=== PATIENT | female | born 1980 | race Caucasian/White ===

== ENCOUNTER → 2021-10-10 12:48 | Outpatient (BNVA) | payer OTHER, SELFPAY | PROVIDERS: Visit Provider Nurse Practitioner Family | DX: Z20.822 Contact with and (suspected) exposure to COVID-19 (principal) | CPT/HCPCS: 87635 ==

== ENCOUNTER → 2021-11-01 14:07 | Outpatient (BNVA) | payer MEDICAID, SELFPAY | PROVIDERS: Visit Provider Family Medicine | DX: N39.0 Urinary tract infection, site not specified (principal) | CPT/HCPCS: 81000 ==

== ENCOUNTER → 2021-11-15 14:55 | Outpatient (BNVA) | payer OTHER, MEDICAID, SELFPAY | PROVIDERS: Visit Provider Family Medicine | DX: E11.9 Type 2 diabetes mellitus without complications (principal); E89.41 Symptomatic postprocedural ovarian failure; I10 Essential (primary) hypertension; Z76.89 Persons encountering health services in other specified circumstances; R68.82 Decreased libido; F32.9 Major depressive disorder, single episode, unspecified; F17.218 Nicotine dependence, cigarettes, with other nicotine-induced disorders | CPT/HCPCS: 80053; 80061; 83036; 84443; 85025 ==

== ENCOUNTER 2022-03-20 17:20 | Emergency (ER) | payer OTHER, MEDICAID, SELFPAY ==
[2022-03-20 18:00] VITALS: BP 143/81; PULSE 109; RESP 18; TEMP 36.8; O2SAT 94; BMI 34.9
[2022-03-20 18:44] LABS: Basophils # 0.1 10^3/uL (0.0-0.1); Basophils % 0.5 %; Eosinophils # 0.4 10^3/uL (0.0-0.8); Eosinophils % 2.1 %; Hematocrit 44.1 % (37.0-47.0); Hemoglobin 14.4 g/dL (11.5-15.3); Lymphocytes # 4.9 10^3/uL (0.8-4.8); Lymphocytes % 28.6 %; Mean Corpuscular HGB Conc 32.7 g/dL (30.0-36.0); Mean Corpuscular Hemoglobin 29.6 pg (28.0-34.0); Mean Corpuscular Volume 90.6 fl (81-99); Mean Platelet Volume 9.1 fL (7.4-10.4); Monocytes # 1.1 10^3/uL (0.2-0.9); Monocytes % 6.1 %; Neutrophils # 10.77 10^3/uL (1.8-7.7); Neutrophils % 62.4 %; Nucleated Red Blood Cells % 0 %; Platelet Count 474 10^3/cmm (130-400); Red Blood Count 4.87 10^6/uL (4.1-5.3); Red Cell Distribution Width 12.9 % (12.1-15.1); White Blood Count 17.2 10^3/uL (4.0-10.0)
[2022-03-20 19:02] LABS: Slide Review Slide Review Perform
[2022-03-20 19:53] LABS: Alanine Aminotransferase 14 U/L (0-33); Albumin Level 4.6 g/dL (3.5-5.2); Alkaline Phosphatase 70 IU/L (35-105); Anion Gap 19.3 (5-19); Aspartate Amino Transferase 11 U/L (0-32); Blood Urea Nitrogen 16 mg/dL (6-20); Calcium 9.7 mg/dL (8.5-10.5); Carbon Dioxide 25 mmol/L (22-29); Chloride 98 mmol/L (98-107); Creatinine Clr Calc Pharmacy 137.9923; Globulin 2.5 g/dL (1.3-4.6); Glomerular Filtration Rate 109.1 mL/min (90-130); Glucose 139 mg/dL (65-115); Lipase 19 U/L (13-60); Osmolality Calculated 289 mOsm/kg (285-295); Potassium 4.3 mmol/L (3.5-5.1); Sodium 138 mmol/L (136-145); Total Bilirubin 0.2 mg/dL (0.15-1.2); Total Protein 7.1 g/dL (6.6-8.7)
[2022-03-20 20:09] LABS: HCG, Serum Qual Negative (Negative)
--- NOTE | 2022-03-20 20:46 | CTR_ITS ---
PROCEDURE INFORMATION: Exam: CT Abdomen And Pelvis Without Contrast Exam date and time: 03/20/2022 9:01 PM Age: 41 years old Clinical indication: Pain; Other: RT flank; Additional info: Hematuria w sudden onset RT flank pain TECHNIQUE: Imaging protocol: Computed tomography of the abdomen and pelvis without contrast. Radiation optimization: All CT scans at this facility use at least one of these dose optimization techniques: automated exposure control; mA and/or kV adjustment per patient size (includes targeted exams where dose is matched to clinical indication); or iterative reconstruction. COMPARISON: No relevant prior studies available. RADIATION DOSE METRICS: Total DLP (mGy-cm): 1230.03 FINDINGS: Limitations: The absence of intravenous contrast lessens the sensitivity of this study for solid organ abnormalities. Lungs: There is a 7 mm sized noncalcified nodule left lower lobe on image number 9 series 3. For patients at low risk (minimal or absent history of smoking and of other known risk factors), recommend CT Chest at 3-6 months, then consider CT Chest at 18-24 months. For patients at high risk (history of smoking or of other known risk factors), recommend CT Chest at 3-6 months, then CT Chest at 18-24 months. (Reference: Diogo) Liver: There is a diffuse decrease in hepatic parenchymal density, consistent with mild fatty infiltration. There is no focal abnormality within the liver. Gallbladder and bile ducts: The gallbladder is normal. Pancreas: The pancreas is normal. Spleen: The spleen is normal. Adrenal glands: The adrenal glands are normal. Kidneys and ureters: The left kidney is normal. There is mild right hydronephrosis. There is mild right hydroureter. There is some stranding around the right renal collecting system and right ureter which may indicate recent obstruction or inflammatory disease. No calcified renal or ureteral calculus is demonstrated. Findings could be due to recently passed stone, infection, or nonopaque obstruction such as nonopaque stone or blood clot. Stomach and bowel: There is no evidence of colitis/diverticulitis. There is no evidence of intestinal obstruction. Appendix: A normal appendix is identified. Intraperitoneal space: There is no evidence of free intraperitoneal fluid. Vasculature: The aorta demonstrates mild atherosclerotic calcification. There is no evidence of an abdominal aortic aneurysm. Lymph nodes: There is no evidence of lymphadenopathy. Urinary bladder: There is question of some mild thickening the urinary bladder wall. The urinary bladder is not distended. Please correlate with clinical signs and symptoms for any evidence of urinary tract infection. Reproductive: There has been a hysterectomy. Bones/joints: Unremarkable. No acute fracture. Soft tissues: Unremarkable. CT/CT kidney stone [id number] IMPRESSION: 1. Mild right hydronephrosis and hydroureter with stranding around the right collecting system and ureter which could be due to recently passed stone or infection. Please correlate with clinical findings. 2. Question of mild urinary bladder wall thickening. REFERENCES: Diogo Ortega, et al. Guidelines for Management of Incidental Pulmonary Nodules Detected on CT Images: From the Fleischner Society 2017. Radiology. 2017;284(1):228-243.
--- NOTE | 2022-03-20 20:46 | ED_ITS ---
HPI - Female Genitourinary General: Chief complaint: Urogenital-Female Stated complaint: urinating blood Time Seen by Provider: 03/20/22 20:45 History of Present Illness: 41-year-old female comes in today for complaints of right flank pain. Pain radiates down into the abdomen. Patient reports some nausea due to pain. Patient has a history of renal calculi. Patient has a history of type 2 diabetes, major depression, and nicotine dependence. Patient appears nontoxic. Patient appears in moderate pain. Patient reported some hematuria starting this afternoon. Associated symptoms: Reports abdominal pain Review of Systems Const: Denies: fever(s) GI: Reports: abdominal pain : Reports: flank pain and hematuria PFSH ED PFSH: Social History Smoking and tobacco status: never smoked Alcohol intake: current Alcohol intake frequency: holidays/special occasions only Physical Exam Const: COMMON NORMALS: alert HENMT: COMMON NORMALS: normocephalic HEAD & SCALP: normocephalic Neck/C-Spine: COMMON NORMALS: full ROM Resp: COMMON NORMALS: normal respiratory effort Cardio: COMMON NORMALS: regular rate RATE: regular rate GI: AUSCULTATION: Yes normoactive bowel sounds PALPATION: Yes Tenderness to palpation present (GI) Details: RUQ : BLADDER/KIDNEY EXAM: Yes CVA tenderness on the right Back/Pelvis: GENERAL BACK: Yes CVA tenderness Neuro: SENSORIUM/ORIENTATION: Yes alert Skin: COMMON NORMALS: no rashes or lesions noted GENERAL SKIN EXAM: no rashes or lesions noted Course Vital Signs: Vital signs: Vital Signs Temperature 98.2 F 03/20/22 18:00 Pulse Rate 109 H 03/20/22 18:00 Respiratory Rate 18 03/20/22 18:00 Blood Pressure 143/81 03/20/22 18:00 Pulse Oximetry 94 03/20/22 18:00 MDM - Female Medical Decision Making 41-year-old female comes in today with complaints of right flank pain. On exam patient had some right CVA tenderness. And some right upper quadrant abdominal tenderness. Bowel sounds were present. Skin was warm and dry. Vital signs are normal. Differential diagnosis include pyelonephritis, renal calculi, cholecystitis. Laboratory values noted a white blood cell count 17,000, urinalysis had a large amount of red blood cells and white blood cells. Patient appeared nontoxic. CT of the abdomen pelvis noted some hydronephrosis without any signs of obstructing calculi. Believe the patient probably has some pyelonephritis. Patient was given 1 g of ceftriaxone and will be continued on Cipro 500 mg twice a day for 5 more days. Patient was encouraged to drink plenty of fluids. Patient was given hydrocodone for pain. Recommend follow-up with urology due to her history of kidney stones and the pyelonephritis. Patient was recommended to return to the ER for worsening symptoms or new concerns. Lab Data : 03/20/22 18:35 03/20/22 18:35 Radiology Impressions Abdomen/Pelvis CT 03/20/22 20:46 IMPRESSION: 1. Mild right hydronephrosis and hydroureter with stranding around the right collecting system and ureter which could be due to recently passed stone or infection. Please correlate with clinical findings. 2. Question of mild urinary bladder wall thickening. REFERENCES: Diogo Ortega, et al. Guidelines for Management of Incidental Pulmonary Nodules Detected on CT Images: From the Fleischner Society 2017. Radiology. 2017;284(1):228-243. Laboratory Results WBC 17.2 10^3/uL (4.0-10.0) H 03/20/22 18:35 RBC 4.87 10^6/uL (4.1-5.3) 03/20/22 18:35 Hgb 14.4 g/dL (11.5-15.3) 03/20/22 18:35 Hct 44.1 % (37.0-47.0) 03/20/22 18:35 MCV 90.6 fl (81-99) 03/20/22 18:35 MCH 29.6 pg (28.0-34.0) 03/20/22 18:35 MCHC 32.7 g/dL (30.0-36.0) 03/20/22 18:35 RDW 12.9 % (12.1-15.1) 03/20/22 18:35 Plt Count 474 10^3/cmm (130-400) H 03/20/22 18:35 MPV 9.1 fL (7.4-10.4) 03/20/22 18:35 Neut % (Auto) 62.4 % 03/20/22 18:35 Lymph % (Auto) 28.6 % 03/20/22 18:35 [place] % (Auto) 6.1 % 03/20/22 18:35 Eos % (Auto) 2.1 % 03/20/22 18:35 Baso % (Auto) 0.5 % 03/20/22 18:35 Neut # (Auto) 10.77 10^3/uL (1.8-7.7) H 03/20/22 18:35 Lymph # (Auto) 4.9 10^3/uL (0.8-4.8) H 03/20/22 18:35 [place] # (Auto) 1.1 10^3/uL (0.2-0.9) H 03/20/22 18:35 Eos # (Auto) 0.4 10^3/uL (0.0-0.8) 03/20/22 18:35 Baso # (Auto) 0.1 10^3/uL (0.0-0.1) 03/20/22 18:35 Nucleated RBC % (auto) 0 % 03/20/22 18:35 Nucleated RBCs # 0.0 /100WBC 03/20/22 18:35 Sodium 138 mmol/L (136-145) 03/20/22 18:35 Potassium 4.3 mmol/L (3.5-5.1) 03/20/22 18:35 Chloride 98 mmol/L (98-107) 03/20/22 18:35 Carbon Dioxide 25 mmol/L (22-29) 03/20/22 18:35 Anion Gap 19.3 (5-19) H 03/20/22 18:35 BUN 16 mg/dL (6-20) 03/20/22 18:35 Creatinine 0.6 mg/dL (0.5-0.9) 03/20/22 18:35 GFR Calculation 109.1 mL/min (90-130) 03/20/22 18:35 Glucose 139 mg/dL (65-115) H 03/20/22 18:35 Calculated Osmolality 289 mOsm/kg (285-295) 03/20/22 18:35 Calcium 9.7 mg/dL (8.5-10.5) 03/20/22 18:35 Total Bilirubin 0.2 mg/dL (0.15-1.2) 03/20/22 18:35 AST 11 U/L (0-32) 03/20/22 18:35 ALT 14 U/L (0-33) 03/20/22 18:35 Alkaline Phosphatase 70 IU/L (35-105) 03/20/22 18:35 Total Protein 7.1 g/dL (6.6-8.7) 03/20/22 18:35 Albumin 4.6 g/dL (3.5-5.2) 03/20/22 18: Globulin 2.5 g/dL (1.3-4.6) 03/20/22 18:35 Lipase 19 U/L (13-60) 03/20/22 18:35 HCG, Qual Negative (Negative) 03/20/22 18:35 Urine Color Red (Yellow) 03/20/22 18:30 Urine Appearance Cloudy (CLEAR) 03/20/22 18:30 Urine pH 6 (5-7) 03/20/22 18:30 Ur Specific [place] 1.010 (1.005-1.030) 03/20/22 18:30 Urine Protein 2+ (Negative) H 03/20/22 18:30 Urine Glucose (UA) Norm (Normal) 03/20/22 18:30 Urine Ketones Negative (Negative) 03/20/22 18:30 Urine Blood 3+ (Negative) H 03/20/22 18:30 Urine Nitrate Negative (Negative) 03/20/22 18:30 Urine Bilirubin Neg (Negative) 03/20/22 18:30 Urine Urobilinogen Norm mg/dL (Negative) 03/20/22 18:30 Ur Leukocyte Esterase 2+ (Negative) H 03/20/22 18:30 Urine RBC Too numerous to cnt /hpf (0-2) H 03/20/22 18:30 Urine WBC >100 /hpf (0-5) H 03/20/22 18:30 Ur Squamous Epith Cells 0-4 /hpf (0-5) H 03/20/22 18:30 Amorphous Sediment Not Reportable 03/20/22 18:30 Urine Bacteria 4+ /hpf (NONE) H 03/20/22 18:30 Discharge Plan Discharge Patient Disposition: Home Clinical Impression: Pyelonephritis, History of kidney stones Condition: Stable Prescriptions: New ciprofloxacin HCl 500 mg tablet 500 mg PO BID Qty: 10 0RF hydrocodone-acetaminophen 5-325 mg tablet 1 tab PO Q6H PRN (Reason: pain (scale score 7-10)) Qty: 10 0RF No Action albuterol sulfate 90 mcg/actuation HFA aerosol inhaler 1 inh inhalation QID PRN (Reason: shortness of breath or wheezing) Qty: 8.5 0RF metformin 1,000 mg tablet 1,000 mg PO BIDWMEAL Qty: 60 5RF glipizide 10 mg tablet extended release 24hr 10 mg PO BID Qty: 60 5RF Wellbutrin SR 100 mg tablet sustained-release 12 hr 100 mg PO QAM 0RF lisinopril 10 mg tablet 10 mg PO QAM 0RF estradiol 2 mg tablet 2 mg PO QAM 0RF pioglitazone 30 mg tablet 30 mg PO QAM 0RF lamotrigine [Lamictal] 100 mg tablet 100 mg PO QAM 0RF duloxetine 40 mg capsule,delayed release(DR/EC) 40 mg PO QAM 0RF Discharge Orders: Discharge ED (Routine); Ordered 03/20/22 Ordered By: Cheng Wright Referrals: Job Calvillo DO [Primary Care Provider] - Discharge Diet: Usual diet Discharge Activity: Increase activity as tolerated Patient Instructions: Kidney Infection (ED), Opioid Safety Activity Restrictions/Additional Instructions: Drink plenty of fluids. Take antibiotics as directed. Follow-up with primary care or urologist as scheduled. Return to ER for new concerns such as high fever, inability to hold fluids down, or any uncontrolled pain. Coding Level of Care Code ED Betting Clerks for Chg Fwd Exam Comprehensive
[2022-03-20 21:05] LABS: Add Urine Culture? Yes; Add Urine Microscopic? YES; Bacteria Urine 4+ /hpf; Bilirubin Urine Neg (Negative); Blood Urine 3+ (Negative); Glucose Urine UA Norm (Normal); Ketones Urine Negative (Negative); Leukocyte Esterase Urine 2+ (Negative); Nitrate Urine Negative (Negative); Protein Urine 2+ (Negative); RBC Urine TOO NUMEROUS TO CNT /hpf (0-2); Squamous Epithelial Cell Urine 0-4 /hpf (0-5); Urine Appearance Cloudy (CLEAR); Urine Color Red (Yellow); Urobilinogen Urine Norm (Negative); WBC Urine >100 /hpf (0-5); pH Urine 6 (5-7)
[2022-03-20] MEDS: ondansetron 2 mg/ML SDV 2 mL 4 MG IVP (21:12)
[2022-03-20] MEDS: morphine 4 mg/mL SDV 1 mL 2 MG IVP (21:12)
[2022-03-20] MEDS: sodium chloride 0.9% 500 ML 999 ML IV (21:13)
[2022-03-20] MEDS: ketorolac 30 mg/mL INJ 15 MG IVP (21:13)
[2022-03-20] MEDS: cefTRIAXone 1,000 MG in sodium chloride 0.9% (plus) 50 ML 100 MG IV (21:21)
[2022-03-20 22:51] VITALS: BP 133/70; PULSE 98; RESP 18; TEMP 36.8; O2SAT 99
--- NOTE | 2022-03-21 11:36 | DCPLANNER ---
Addendum entered by Dulce Pantoja 04/04/22 11:21: Patient had a follow up appointment scheduled with urology - patient did attend appointment. Addendum entered by Dulce Pantoja 03/27/22 13:30: Patient has a follow up appointment scheduled for Friday, April 01, 2022 at 10:45 with [facility] at [facility] [place] Clinic will call patient with appointment information. Original Note: furniture manager had message to schedule a follow up appointment for patient with urology. furniture manager sent patients information to the front office staff at urology. Patients information will be printed and reviewed. Clinic will call patient with appointment information.
== END 2022-03-20 22:53 | disposition home or self-care (01) ==
PROVIDERS: Emergency Medicine; Emergency Provider Nurse Practitioner Family; PCP Family Medicine
DX: N12 Tubulo-interstitial nephritis, not specified as acute or chronic (principal); Z87.442 Personal history of urinary calculi; Z79.84 Long term (current) use of oral hypoglycemic drugs
CPT/HCPCS: 36415; 74176; 80053; 81001; 83690; 84703; 85025; 87077; 87086; 87186; 96365; 96375; 99285; J0696; J1885; J2270; J2405; J7040

== ENCOUNTER 2022-04-01 09:50 | Outpatient (CLI) | payer OTHER, MEDICAID, SELFPAY ==
--- NOTE | 2022-04-01 09:30 | XRR_ITS ---
PROCEDURE INFORMATION: Exam: XR Abdomen Exam date and time: 04/01/2022 10:03 AM Age: 41 years old Clinical indication: Other: Right flank; Prior surgery; Surgery type: --hysterectomy; Patient HX: RT kidney pain in low back x 2 months; Additional info: Enrriquetony 04/01/22 @ 9:45am appt to follow TECHNIQUE: Imaging protocol: Radiologic exam of the abdomen. Views: Frontal supine view of the abdomen. 1 View. COMPARISON: CT kidney stone [id number] 03/20/2022 9:01 PM FINDINGS: Gastrointestinal tract: Normal. No bowel dilation. Organs: No kidney stone identified. Multiple phleboliths are again seen in the pelvis bilaterally. Bones/joints: Unremarkable. XR/XR KUB [id number] IMPRESSION: No kidney stone identified.
== END 2022-04-01 09:51 | disposition home or self-care (01) ==
LOC: RAD 09:51
PROVIDERS: PCP Family Medicine; Visit Provider Nurse Practitioner Family
DX: N12 Tubulo-interstitial nephritis, not specified as acute or chronic (principal); Z87.442 Personal history of urinary calculi
CPT/HCPCS: 74018; 81003; 87086

== ENCOUNTER → 2022-05-30 10:11 | Outpatient (BNVA) | payer OTHER, MEDICAID, SELFPAY | PROVIDERS: PCP Family Medicine; Visit Provider Urology | DX: N30.20 Other chronic cystitis without hematuria (principal); R10.9 Unspecified abdominal pain | CPT/HCPCS: 81003 ==

== ENCOUNTER → 2022-10-07 14:52 | Outpatient (BNVA) | payer OTHER, MEDICAID, SELFPAY | PROVIDERS: PCP Family Medicine; Visit Provider Family Medicine | DX: E11.9 Type 2 diabetes mellitus without complications (principal); F32.9 Major depressive disorder, single episode, unspecified; I10 Essential (primary) hypertension; E89.41 Symptomatic postprocedural ovarian failure; F17.218 Nicotine dependence, cigarettes, with other nicotine-induced disorders | CPT/HCPCS: 80053; 80061; 83036; 84443; 85025 ==

== ENCOUNTER → 2023-01-07 11:11 | Outpatient (BNVA) | payer OTHER, MEDICAID, SELFPAY | PROVIDERS: PCP Family Medicine; Visit Provider Family Medicine | DX: E11.9 Type 2 diabetes mellitus without complications (principal) | CPT/HCPCS: 83036 ==

== ENCOUNTER 2023-02-10 14:51 | Emergency (ER) | payer OTHER, SELFPAY ==
[2023-02-10 14:54] VITALS: BP 149/108; PULSE 103; RESP 16; TEMP 36.7; O2SAT 97
[2023-02-10 15:07] VITALS: BP 165/130; PULSE 101; RESP 16; O2SAT 96
--- NOTE | 2023-02-10 15:17 | CT_ITS ---
WS: [id number] CT ABDOMEN AND PELVIS WITH CONTRAST HISTORY: trauma/mid back pain TECHNIQUE: Imaging performed of the abdomen and pelvis with IV contrast. Single phase imaging of the abdomen. Coronal and sagittal reformats are submitted. All CT scans at [facility] use at [address] one of these dose optimization techniques: automated exposure control; mA and/or kV adjustment per patient size (includes targeted exams where dose is matched to clinical indication); or iterative re construction. IV CONTRAST: Omnipaque 350; 100 mL IV. Oral contrast: No DLP: 829.53 mGy.cm COMPARISON: 03/20/2022 Lower thorax: Lung bases are clear. Heart is normal size. No hiatal hernia. Liver/biliary system: Normal size liver. Hepatic steatosis along the falciform ligament. Normal sravanthi l vein. Gallbladder: Normal. No gallstones or wall thickening. No pericholecystic fluid. Pancreas: Normal size pancreas and pancreatic duct. No adjacent inflammation. Spleen: Normal size spleen. No mass or infarct. Adrenal glands: Normal. Right kidney: Normal. Left kidney: Normal. Aorta: Mild atherosclerosis with no aneurysm. Lymphadenopathy: None. Free fluid: None. GI tract: Normal stomach. No small bowel obstruction. The appendix is not visualized. No GI tract obs truction. Abdominal wall: Unremarkable abdominal wall. No hernia. Pelvis: Prior hysterectomy. Normal urinary bladder. No free fluid. Bones: Remote healed posterior LEFT 11th rib fracture. Additional lateral RIGHT 10th rib deformity, 0 0probably from an old fracture also. There is no adjacent inflammation or bleeding to suggest this is an acute injury. Bilateral unfused osteophytes along the superior acetabulum. Appear well-corticated and old. CT/CT abdomen pelvis w con* [id number] IMPRESSION: 1. No acute mesenteric injury identified. 2. No visceral organ injury. 3. No free fluid or adenopathy. 4. Remote fractures bilaterally in the lower thorax.
--- NOTE | 2023-02-10 15:17 | CT_ITS ---
WS: [id number] CT CERVICAL SPINE HISTORY: trauma TECHNIQUE: Contiguous 2.0 mm axial imaging performed through the entire cervical spine. Sagittal and coronal reformats also performed. All CT scans at [facility] use at least one of these dose o ptimization techniques: automated exposure control; mA and/or kV adjustment per patient size (include s targeted exams where dose is matched to clinical indication); or iterative reconstruction. DLP: 1566.55 mGy.cm COMPARISON: None available. Normal cervical alignment. Craniocervical junction, atlantodental interval and C1-C2 alignment is nor mal. Craniocervical junction is normally aligned. Lateral masses of C1 and C2 are normal. Visualized porti ons of the clavicles are normal. C2-C3: Normal. C3-C4: Normal. C4-C5: Normal. C5-C6: Normal. C6-C7: Normal. C7-T1: Normal. Soft tissues are normal. Lung apices are clear. CT/CT cervical spin wo con* [id number] IMPRESSION: Normal cervical spine.
--- NOTE | 2023-02-10 15:21 | CT_ITS ---
WS: [id number] CT HEAD NONCONTRAST HISTORY: trauma TECHNIQUE: Contiguous axial imaging performed through the brain in 2.5 mm imaging. Bone and soft tiss ue windows. Sagittal and coronal reformats reviewed. All CT scans at [facility] use at least one of these dose optimization techniques: automated exposure control; mA and/or kV adjustment per pa tient size (includes targeted exams where dose is matched to clinical indication); or iterative recon struction. DLP: 1566.55 mGy.cm COMPARISON: None available. No acute intracranial hemorrhage, midline shift or mass effect. No atrophy or prior infarcts or herniation. Ventricles: Normal size with no hydrocephalus. Paranasal sinuses: Small mucous retention cyst RIGHT maxillary sinus. Mastoid air cells: There is a small amount of fluid in the RIGHT mastoid air cells. Calvarium and scalp: Skull is intact with no soft tissue edema or swelling. CT/CT head wo con* [id number] IMPRESSION: 1. No acute intracranial hemorrhage or edema. 2. No fracture. 3. Small amount of fluid in the RIGHT mastoid air cells. No fractures identifi ed.
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
[2023-02-10 15:28] LABS: Basophils # 0.1 10^3/uL (0.0-0.1); Basophils % 0.4 %; Eosinophils # 0.2 10^3/uL (0.0-0.8); Eosinophils % 1.1 %; Hematocrit 42.7 % (37.0-47.0); Hemoglobin 13.8 g/dL (11.5-15.3); Lymphocytes # 2.9 10^3/uL (0.8-4.8); Lymphocytes % 17.2 %; Mean Corpuscular HGB Conc 32.3 g/dL (30.0-36.0); Mean Corpuscular Hemoglobin 28.8 pg (28.0-34.0); Mean Corpuscular Volume 89.1 fl (81-99); Mean Platelet Volume 9.5 fL (7.4-10.4); Monocytes # 0.6 10^3/uL (0.2-0.9); Monocytes % 3.8 %; Neutrophils # 12.77 10^3/uL (1.8-7.7); Nucleated Red Blood Cells % 0 %; Platelet Count 448 10^3/cmm (130-400); Red Blood Count 4.79 10^6/uL (4.1-5.3); Red Cell Distribution Width 13.5 % (12.1-15.1); White Blood Count 16.6 10^3/uL (4.0-10.0)
[2023-02-10] MEDS: iohexol 350 mg/mL 500 mL Btl (per mL) IV (15:44)
[2023-02-10 15:53] LABS: Alanine Aminotransferase 11 U/L (0-33); Albumin Level 4.1 g/dL (3.5-5.2); Alkaline Phosphatase 69 U/L (35-105); Anion Gap 20.6 (5-19); Aspartate Amino Transferase 14 U/L (0-32); Blood Urea Nitrogen 9 mg/dL (6-20); Calcium 9.6 mg/dL (8.5-10.5); Carbon Dioxide 19 mmol/L (22-29); Chloride 102 mmol/L (98-107); Globulin 2.6 g/dL (1.3-4.6); Glomerular Filtration Rate 108.6 mL/min (90-130); Glucose 206 mg/dL (65-115); Osmolality Calculated 291 mOsm/kg (285-295); Potassium 3.6 mmol/L (3.5-5.1); Sodium 138 mmol/L (136-145); Total Bilirubin 0.2 mg/dL (0.15-1.2); Total Protein 6.7 g/dL (6.6-8.7)
[2023-02-10] MEDS: HYDROcodone-acetaminophen 5-325 mg Tablet 1 TAB PO (16:21)
[2023-02-10 16:25] LABS: Amphetamines Screen Urine Negative (Negative); Barbiturates Screen Urine Negative (Negative); Benzodiazepines Screen Urine Negative (Negative); Cocaine Screen Urine Negative (Negative); Opiate Screen Urine Negative (Negative); PCP Screen Urine Negative (Negative); THC Screen Urine Negative (Negative)
[2023-02-10 16:36] LABS: Urine Appearance Clear (CLEAR); Urine Color Yellow (Yellow)
[2023-02-10 16:37] LABS: Add Urine Culture? No; Add Urine Microscopic? YES; Bacteria Urine TRACE /hpf; Bilirubin Urine Neg (Negative); Blood Urine Neg (Negative); Glucose Urine UA Norm (Normal); Ketones Urine Negative (Negative); Leukocyte Esterase Urine Negative (Negative); Nitrate Urine Negative (Negative); Protein Urine Trace (Negative); RBC Urine 0-4 /hpf (0-2); Specific Gravity, Urine 1.005 (1.005-1.030); Squamous Epithelial Cell Urine 0-4 /hpf (0-5); Urobilinogen Urine Norm (Negative); WBC Urine 0-4 /hpf (0-5); pH Urine 5 (5-7)
[2023-02-10 17:12] VITALS: BP 156/97; PULSE 109; RESP 18; O2SAT 98
== END 2023-02-10 17:13 | disposition home or self-care (01) ==
PROVIDERS: Emergency Provider Family Medicine; PCP Family Medicine
DX: S39.012A Strain of muscle, fascia and tendon of lower back, initial encounter (principal); V89.2XXA Person injured in unspecified motor-vehicle accident, traffic, initial encounter; F17.210 Nicotine dependence, cigarettes, uncomplicated
CPT/HCPCS: 70450; 72125; 74177; 80053; 80306; 81001; 85025; 99285; Q9967

== ENCOUNTER 2023-02-17 10:05 | Outpatient (CLI) | payer OTHER, SELFPAY ==
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
== END 2023-02-17 10:06 | disposition home or self-care (01) ==
LOC: RAD 10:09
PROVIDERS: PCP Family Medicine; Visit Provider Family Medicine
DX: M12.512 Traumatic arthropathy, left shoulder (principal)
CPT/HCPCS: 73030

== ENCOUNTER 2023-02-24 09:20 | Outpatient (CLI) | payer OTHER, SELFPAY | END 2023-02-24 09:21 | disposition home or self-care (01) | LOC: RAD 09:21 | PROVIDERS: PCP Family Medicine; Visit Provider Family Medicine | DX: S22.32XA Fracture of one rib, left side, initial encounter for closed fracture (principal); M47.816 Spondylosis without myelopathy or radiculopathy, lumbar region; S81.801A Unspecified open wound, right lower leg, initial encounter; V49.9XXA Car occupant (driver) (passenger) injured in unspecified traffic accident, initial encounter; Y93.9 Activity, unspecified; Y92.9 Unspecified place or not applicable; Y99.9 Unspecified external cause status | CPT/HCPCS: 72100; 73590 ==

== ENCOUNTER 2023-03-21 08:32 | Outpatient (CLI) | payer OTHER, SELFPAY ==
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
== END 2023-03-21 08:33 | disposition home or self-care (01) ==
LOC: RAD 08:33
PROVIDERS: PCP Family Medicine; Visit Provider Family Medicine
DX: M12.512 Traumatic arthropathy, left shoulder (principal)
CPT/HCPCS: 73221

== ENCOUNTER 2023-03-27 11:36 | Outpatient (RCR) | payer OTHER, SELFPAY | END 2023-03-31 23:59 | disposition home or self-care (01) | LOC: SPT 11:36 | PROVIDERS: PCP Family Medicine; Visit Provider Family Medicine | DX: M12.512 Traumatic arthropathy, left shoulder (principal); S22.32XD Fracture of one rib, left side, subsequent encounter for fracture with routine healing; X58.XXXD Exposure to other specified factors, subsequent encounter | CPT/HCPCS: 97161 ==

== ENCOUNTER 2023-07-04 10:28 | Outpatient (RCR) | payer OTHER, SELFPAY | END 2023-07-31 23:59 | disposition home or self-care (01) | LOC: SPT 10:28 | PROVIDERS: PCP Family Medicine; Visit Provider Student in an Organized Health Care Education/Training Program | DX: M25.512 Pain in left shoulder (principal) | CPT/HCPCS: 97033; 97110; 97140; 97161 ==

== ENCOUNTER → 2024-03-23 08:56 | Outpatient (BNVA) | payer OTHER, SELFPAY | PROVIDERS: PCP Family Medicine; Visit Provider Family Medicine | DX: E23.0 Hypopituitarism (principal); E03.8 Other specified hypothyroidism | CPT/HCPCS: 80053; 82533; 84146; 84305; 84439; 84443; 84481; 86376 ==

== ENCOUNTER → 2024-04-27 09:14 | Outpatient (BNVA) | payer OTHER, SELFPAY | PROVIDERS: PCP Family Medicine; Visit Provider Family Medicine | DX: R79.89 Other specified abnormal findings of blood chemistry (principal) | CPT/HCPCS: 82533 ==